=== PATIENT | female | born 1990 ===

== ENCOUNTER 2022-05-23 11:24 | Emergency (ER) | payer BC ==
[2022-05-23] MEDS ORDERED: Gadobenate Dimeglumine 529 MG/ML 20 ML SDV IVPUSH STA (13:11)
[2022-05-23] MEDS ORDERED: LORazepam 1 MG Tab PO ONE (14:40)
[2022-05-23] MEDS ORDERED: Lidocaine 1% 5 ML VIAL INJECT ONE (14:40)
== END 2022-05-23 16:47 | disposition home or self-care (01) ==
LOC: MW.ED 11:24
DX: H47.10 Unspecified papilledema (principal); R51.9 Headache, unspecified
CPT/HCPCS: 62270; 70553; 96374; 99283; A9270; A9577